=== PATIENT | female | born 1940 | race Caucasian/White ===

== ENCOUNTER → 2022-05-14 | Outpatient (CLI) | payer MEDICARE ==
[2022-05-14 14:30] LABS: HGB 11.6 g/dL (12.0-15.0); MCH 29.4 pg (27.0-32.0); MCHC 31.4 g/dL (32.0-37.0); MCV 93.9 fL (80.0-97.0); Mean Platelet Volume 10.7 fL (9.5-12.2); NRBC Per 100 WBC 0 /100 WBCS (0.0-0.0); Platelet Count 305 X 10*3/uL (140-440); RBC 3.94 X 10*6/uL (4.10-5.20); RDW 12.8 % (11.5-14.5); WBC 8.32 X 10*3/uL (4.50-10.00)
[2022-05-14 14:49] LABS: ALT 10 U/L (8-44); AST 16 U/L (13-35); African American GFR (CKD) 53.2 (60.0-200.0); BUN/Creat Ratio 15.95 Ratio (12.00-20.00); Blood Urea Nitrogen 17.7 mg/dL (9.0-27.0); Calcium 9.6 mg/dL (8.7-10.3); Carbon Dioxide 23.6 mmol/L (20.0-27.5); Chloride 103 mmol/L (96-109); Chol/HDL Ratio 5.67 Ratio; Glucose 98 mg/dL (70-110); LDL Cholesterol,Calculated 180.3 mg/dL (0.0-131.0); Non-African American GFR(CKD) 45.9 (60.0-200.0); Potassium 4.6 mmol/L (3.5-5.5); Sodium 139 mmol/L (135-145); VLDL Calculation 14.12 mg/dL (5.00-40.00)
== END | disposition home or self-care (01) ==
LOC: LABWHC1 10:23
PROVIDERS: ATTEND Internal Medicine Cardiovascular Disease
DX: E78.2 Mixed hyperlipidemia (principal)
CPT/HCPCS: 36415; 80048; 80061; 84443; 84450; 84460; 85027

== ENCOUNTER 2022-07-23 16:08 | Emergency (ER) | payer MEDICARE ==
[2022-07-23 16:20] VITALS: PULSE 66; RESP 18; TEMP 98.1
[2022-07-23] MEDS ORDERED: ONDANSETRON 4 MG/2 ML VIAL IVP STA (16:29)
--- NOTE | 2022-07-23 16:34 | ED ---
Dizziness HPI - General Chief Complaint: Dizziness Stated Complaint: dizziness Time Seen by Provider: 07/23/22 16:23 Source: patient, EMS, RN notes reviewed, old records reviewed Mode of arrival: EMS Limitations: no limitations - History of Present Illness Initial Comments: This is a 82-year-old female alert and oriented 4 presents to emergency room wi th dizziness that started around 2:30 today when she woke up from her nap. She states that she sat up in the room was spinning. She became nauseated but no vomiting. She is unable to stand up on her own. She called EMS but her to the hospital. Her symptoms have resolved at this time. She states that in the past that she has congestive heart failure she would just pass out. She is concerned that this may be related to her heart or kidneys. MD Complaint: dizziness -: hour(s) (2) Timing: now resolved Description: "room spinning", nausea History of Same: No History of Trauma: No Improves With: nothing Worsens With: movement Associated Symptoms: other (nausea) - Related Data Home Medications Medication Instructions Recorded Confirmed Furosemide [Lasix] 20 mg PO DAILY 07/23/22 07/23/22 Levothyroxine Sodium [Synthroid] 75 mcg PO DAILY 07/23/22 07/23/22 Losartan [Cozaar] 25 mg PO DAILY 07/23/22 07/23/22 Metoprolol Succinate (ER) [Toprol 50 mg PO DAILY 07/23/22 07/23/22 Xl] Sevelamer Carbonate 800 mg PO W/SUPPER 07/23/22 07/23/22 Spironolactone [Aldactone] 25 mg PO DAILY 07/23/22 07/23/22 lisinopriL [Prinivil] 10 mg PO DAILY 07/23/22 07/23/22 Previous Rx's Medication Instructions Recorded Meclizine [Antivert] 25 mg PO TID PRN #15 tab 07/23/22 Allergies Allergy/AdvReac Type Severity Reaction Status Date / Time morphine Allergy Nausea & Verified 07/23/22 17:22 Vomiting perflutren [From Definity] Allergy Unknown Verified 07/23/22 17:22 Review of Systems ROS Statement: Those systems with pertinent positive or pertinent negative responses have been documented in the HPI. ROS Other: All systems not noted in ROS Statement are negative. Past Medical History Past Medical History: Heart Failure, COPD, Renal Disease History of Any Multi-Drug Resistant Organisms: None Reported Past Surgical History: Pacemaker Smoking Status: Never smoker Past Alcohol Use History: None Reported Past Drug Use History: None Reported General Exam Limitations: no limitations General appearance: alert, in no apparent distress Head exam: Present: atraumatic, normocephalic, normal inspection Eye exam: Present: normal appearance, EOMI. Absent: scleral icterus, conjunctival injection, nystagmus, periorbital swelling, periorbital tenderness ENT exam: Present: normal oropharynx, mucous membranes moist Neck exam: Present: normal inspection, full ROM. Absent: tenderness, meningismus, lymphadenopathy, thyromegaly Respiratory exam: Present: normal lung sounds bilaterally. Absent: respiratory distress, wheezes, rales, rhonchi, stridor, chest wall tenderness, accessory muscle use Cardiovascular Exam: Present: regular rate GI/Abdominal exam: Present: soft. Absent: distended, tenderness, rigid Extremities exam: Present: full ROM, normal capillary refill. Absent: tenderness, pedal edema Neurological exam: Present: alert, oriented X3, CN II-XII intact Expanded Patient oriented to: Present: person, place, time Speech: Present: fluid speech Cranial nerves: EOM's Intact: Normal, Gag Reflex: Normal, Tongue Deviation: Normal Cerebellar function: Finger to Nose: Normal, Heel to Bhagat: Normal, Romberg: Normal Motor strength exam: RUE: 5, LUE: 5, RLE: 5, LLE: 5 Eye Response: (4) open spontaneously Motor Response: (6) obeys commands Verbal Response: (5) oriented Susannah Total: 15 Psychiatric exam: Present: normal affect, normal mood Skin exam: Present: warm, dry, normal color. Absent: cyanosis, diaphoretic, erythema, petechiae, pallor, mottled Course Vital Signs 07/23/22 16:10 Temperature 98.1 F Pulse Rate 66 Respiratory 18 Rate Blood Pressure 126/58 O2 Sat by Pulse 96 Oximetry EKG Findings - [place], Pacemaker, Normal: Pacemaker: atrial pacing w/capture (except when refractory) (Ventricular rate 60 , MO interval 0.268, QRS 0.126, QTC 0.470; electronic atrial pacemaker left axis deviation) Medical Decision Making - Medical Decision Making She presents with an episode of vertigo lasting approximately one hour after she awoke from a nap and sat up. She states that she felt that the room was spinning and was unable to ambulate. Patient states that the symptoms resolved prior to arrival to arrival at the hospital. She has no headaches, no fevers no vomiting no chest pain or difficulty breathing. He does state that she feels fatigued. She has no symptoms of vertigo at this time. She has no focal neurological deficits. No headaches. EKG shows no ST elevation or acute abnormality. Troponin negative at 0.012. Hemoglobin and hematocrit are stable no evidence of leukocytosis. Electrolytes are unremarkable. Urinalysis is negative for infection. Patient's abdomen is soft and nontender. This is likely peripheral vertigo. She states she has a history of vertigo and was given Antivert at that time with relief. Patient will be prescribed Antivert and directed to follow up with her primary care doctor this week. Return to emergency room with any new or concerning symptoms. Do not drive if having dizziness. Patient is agreeable to this plan of care. Vital signs are stable. Case discussed with Dr. Pittman. - Lab Data Result diagrams: 07/23/22 16:45 07/23/22 16:45 Lab Results 07/23/22 07/23/22 07/23/22 Range/Units 16:45 16:45 16:45 WBC 8.0 (3.8-10.6) k/uL RBC 3.71 L (3.80-5.40) m/uL Hgb 11.1 L (11.4-16.0) gm/dL Hct 34.6 (34.0-46.0) % MCV 93.3 (80.0-100.0) fL MCH 30.0 (25.0-35.0) pg MCHC 32.1 (31.0-37.0) g/dL RDW 12.7 (11.5-15.5) % Plt Count 210 (150-450) k/uL MPV 7.9 Neutrophils % 66 % Lymphocytes % 21 % Monocytes % 5 % Eosinophils % 2 % Basophils % 2 % Neutrophils # 5.3 (1.3-7.7) k/uL Lymphocytes # 1.7 (1.0-4.8) k/uL Monocytes # 0.4 (0-1.0) k/uL Eosinophils # 0.2 (0-0.7) k/uL Basophils # 0.2 (0-0.2) k/uL PT 10.6 (9.0-12.0) sec INR 1.0 (<1.2) Sodium (137-145) mmol/L Potassium (3.5-5.1) mmol/L Chloride (98-107) mmol/L Carbon Dioxide (22-30) mmol/L Anion Gap mmol/L BUN (7-17) mg/dL Creatinine (0.52-1.04) mg/dL Est GFR (CKD-EPI)AfAm (>60 ml/min/1.73 sqM) Est GFR (CKD-EPI)NonAf (>60 ml/min/1.73 sqM) Glucose (74-99) mg/dL Calcium (8.4-10.2) mg/dL Total Bilirubin (0.2-1.3) mg/dL AST (14-36) U/L ALT (4-34) U/L Alkaline Phosphatase (38-126) U/L Troponin I (0.000-0.034) ng/mL Total Protein (6.3-8.2) g/dL Albumin (3.5-5.0) g/dL Urine Color Colorless Urine Appearance Clear (Clear) Urine pH 5.5 (5.0-8.0) Ur Specific [place] 1.003 (1.001-1.035) Urine Protein Negative (Negative) Urine Glucose (UA) Negative (Negative) Urine Ketones Negative (Negative) Urine Blood Negative (Negative) Urine Nitrite Negative (Negative) Urine Bilirubin Negative (Negative) Urine Urobilinogen <2.0 (<2.0) mg/dL Ur Leukocyte Esterase Moderate H (Negative) Urine RBC <1 (0-5) /hpf Urine WBC 4 (0-5) /hpf 07/23/22 07/23/22 Range/Units 16:45 16:45 WBC (3.8-10.6) k/uL RBC (3.80-5.40) m/uL Hgb (11.4-16.0) gm/dL Hct (34.0-46.0) % MCV (80.0-100.0) fL MCH (25.0-35.0) pg MCHC (31.0-37.0) g/dL RDW (11.5-15.5) % Plt Count (150-450) k/uL MPV Neutrophils % % Lymphocytes % % Monocytes % % Eosinophils % % Basophils % % Neutrophils # (1.3-7.7) k/uL Lymphocytes # (1.0-4.8) k/uL Monocytes # (0-1.0) k/uL Eosinophils # (0-0.7) k/uL Basophils # (0-0.2) k/uL PT (9.0-12.0) sec INR (<1.2) Sodium 139 (137-145) mmol/L Potassium 3.7 (3.5-5.1) mmol/L Chloride 106 (98-107) mmol/L Carbon Dioxide 22 (22-30) mmol/L Anion Gap 11 mmol/L BUN 22 H (7-17) mg/dL Creatinine 0.90 (0.52-1.04) mg/dL Est GFR (CKD-EPI)AfAm 69 (>60 ml/min/1.73 sqM) Est GFR (CKD-EPI)NonAf 60 (>60 ml/min/1.73 sqM) Glucose 96 (74-99) mg/dL Calcium 8.9 (8.4-10.2) mg/dL Total Bilirubin 0.3 (0.2-1.3) mg/dL AST 20 (14-36) U/L ALT 12 (4-34) U/L Alkaline Phosphatase 86 (38-126) U/L Troponin I <0.012 (0.000-0.034) ng/mL Total Protein 6.4 (6.3-8.2) g/dL Albumin 3.8 (3.5-5.0) g/dL Urine Color Urine Appearance (Clear) Urine pH (5.0-8.0) Ur Specific [place] (1.001-1.035) Urine Protein (Negative) Urine Glucose (UA) (Negative) Urine Ketones (Negative) Urine Blood (Negative) Urine Nitrite (Negative) Urine Bilirubin (Negative) Urine Urobilinogen (<2.0) mg/dL Ur Leukocyte Esterase (Negative) Urine RBC (0-5) /hpf Urine WBC (0-5) /hpf Disposition Clinical Impression: Vertigo Disposition: HOME SELF-CARE Condition: Good Instructions (If sedation given, give patient instructions): Vertigo (ED), Dizziness (ED) Additional Instructions: Take Antivert as prescribed for any dizziness. Follow-up with the primary care doctor this week. Return to the emergency room with any new or concerning symptoms Prescriptions: Meclizine [Antivert] 25 mg PO TID PRN #15 tab PRN Reason: Vertigo Is patient prescribed a controlled substance at d/c from ED?: No Referrals: Buddy Nguyen MD [Primary Care Provider] - 1-2 days Time of Disposition: 18:58
[2022-07-23 17:02] LABS: Basophils # (A) 0.2 k/uL (0-0.2); Basophils % (A) 2 %; Eosinophils # (A) 0.2 k/uL (0-0.7); Eosinophils % (A) 2 %; HCT 34.6 % (34.0-46.0); HGB 11.1 gm/dL (11.4-16.0); Lymphocytes # (A) 1.7 k/uL (1.0-4.8); Lymphocytes % (A) 21 %; MCHC 32.1 g/dL (31.0-37.0); MCV 93.3 fL (80.0-100.0); Mean Platelet Volume 7.9; Monocytes # (A) 0.4 k/uL (0-1.0); Monocytes % (A) 5 %; Neutrophils # (A) 5.3 k/uL (1.3-7.7); Neutrophils % (A) 66 %; Platelet Count 210 k/uL (150-450); RBC 3.71 m/uL (3.80-5.40); RDW 12.7 % (11.5-15.5)
[2022-07-23 17:09] LABS: Prothrombin Time 10.6 sec (9.0-12.0)
[2022-07-23 17:15] LABS: Albumin 3.8 g/dL (3.5-5.0); Calcium 8.9 mg/dL (8.4-10.2); Potassium 3.7 mmol/L (3.5-5.1); Total Bilirubin 0.3 mg/dL (0.2-1.3); Total Protein 6.4 g/dL (6.3-8.2)
[2022-07-23 18:12] LABS: Appearance,Urine Clear (Clear); Bilirubin,Urine Negative (Negative); Blood,Urine Negative (Negative); Color,Urine Colorless; Glucose,Urine (UA) Negative (Negative); Ketones,Urine Negative (Negative); Leukocyte Esterase,Urine Moderate (Negative); Nitrite,Urine Negative (Negative); PH, Urine 5.5 (5.0-8.0); Protein,Urine Negative (Negative); RBC,Urine <1 /hpf (0-5); Specific Gravity,Urine 1.003 (1.001-1.035); Urobilinogen,Urine <2.0 mg/dL (<2.0); WBC,Urine 4 /hpf (0-5)
[2022-07-23 19:50] VITALS: BP 130/93
== END 2022-07-23 20:03 | disposition home or self-care (01) ==
LOC: EC 16:08
DX: R42 Dizziness and giddiness (principal); J44.9 Chronic obstructive pulmonary disease, unspecified; Z88.5 Allergy status to narcotic agent; Z88.8 Allergy status to other drugs, medicaments and biological substances
CPT/HCPCS: 36415; 93005; 80053; 84484; 85025; 85610; 81001; 99284; 96374; J2405

== ENCOUNTER → 2022-09-13 | Outpatient (CLI) | payer MEDICARE ==
[2022-09-14 00:21] LABS: African American GFR (CKD) 46.5 (60.0-200.0); Anion Gap 14.2 mmol/L (10.00-18.00); BUN/Creat Ratio 17.58 Ratio (12.00-20.00); Blood Urea Nitrogen 21.8 mg/dL (9.0-27.0); Calcium 9.6 mg/dL (8.7-10.3); Carbon Dioxide 23.6 mmol/L (20.0-27.5); Non-African American GFR(CKD) 40.1 (60.0-200.0); Potassium 4.6 mmol/L (3.5-5.5)
== END | disposition home or self-care (01) ==
LOC: LABWHC1 15:00
PROVIDERS: ATTEND Internal Medicine
DX: N18.32 Chronic kidney disease, stage 3b (principal)
CPT/HCPCS: 36415; 80048

== ENCOUNTER → 2022-09-18 | Outpatient (CLI) | payer MEDICARE ==
--- NOTE | 2022-09-18 13:58 | XR ---
EXAMINATION TYPE: XR lumbar spine 2 or 3V DATE OF EXAM: 09/18/2022 CLINICAL HISTORY: Low back pain TECHNIQUE: Three views of the lumbar spine are submitted. COMPARISON: None. FINDINGS: There are 5 lumbar type vertebral bodies identified. No acute fracture or dislocation. Levoscoliotic curvature of the lumbar spine. Diffuse bone mineralization. Grade 1 anterolisthesis of L4 on L5. Mult ilevel degenerative disc disease with disc space narrowing, endplate sclerosis, and anterior osteophy tosis. Multilevel facet arthropathy. Vertebral body heights are within normal limits. The overlying s oft tissue appears unremarkable. IMPRESSION: 1. No acute fracture or dislocation is seen in the lumbar spine. 2. Grade 1 anterolisthesis L4 on L5 with levoscoliotic curvature. 3. Mild lumbar degenerative disc disease.
== END | disposition home or self-care (01) ==
LOC: RADXRMAIN 13:19
PROVIDERS: ATTEND Family Medicine
DX: M43.16 Spondylolisthesis, lumbar region (principal); M51.36 Other intervertebral disc degeneration, lumbar region
CPT/HCPCS: 72100

== ENCOUNTER → 2022-09-18 | Outpatient (CLI) | payer MEDICARE ==
[2022-09-18 18:24] LABS: HCT 41.3 % (37.2-46.3); HGB 13.6 g/dL (12.0-15.0); MCH 30.2 pg (27.0-32.0); MCHC 32.9 g/dL (32.0-37.0); MCV 91.6 fL (80.0-97.0); NRBC Per 100 WBC 0 /100 WBCS (0.0-0.0); Platelet Count 264 X 10*3/uL (140-440); RBC 4.51 X 10*6/uL (4.10-5.20); RDW 12.7 % (11.5-14.5)
[2022-09-18 19:32] LABS: Albumin 4.8 g/dL (3.8-4.9); Albumin/Globulin Ratio 1.76 (1.60-3.17); Anion Gap 14.2 mmol/L (10.00-18.00); BUN/Creat Ratio 22.41 Ratio (12.00-20.00); Blood Urea Nitrogen 24.2 mg/dL (9.0-27.0); Calcium 9.7 mg/dL (8.7-10.3); Carbon Dioxide 22.1 mmol/L (20.0-27.5); Globulin 2.7 g/dL (1.6-3.3); Magnesium 2.3 mg/dL (1.5-2.4); Non-African American GFR(CKD) 47.4 (60.0-200.0); Phosphorus 3.7 mg/dL (2.4-5.1); Potassium 4.7 mmol/L (3.5-5.5); Total Bilirubin 0.5 mg/dL (0.30-1.20); Total Protein 7.6 g/dL (6.2-8.2)
== END | disposition home or self-care (01) ==
LOC: LABWHC1 12:43
PROVIDERS: ATTEND Nurse Practitioner Acute Care
DX: N18.32 Chronic kidney disease, stage 3b (principal)
CPT/HCPCS: 36415; 80053; 83735; 84100; 85027

== ENCOUNTER 2022-09-24 18:01 | Inpatient (IN) | payer MEDICARE ==
[2022-09-24] MEDS ORDERED: ONDANSETRON 4 MG/2 ML VIAL IVP STA (19:16)
[2022-09-24] MEDS ORDERED: SODIUM CHLORIDE 0.9% 1,000 ML IV STA (19:16)
[2022-09-24] MEDS ORDERED: HYDROmorphone 1 MG/ML 1 ML SYRINGE IVP STA (19:16)
--- NOTE | 2022-09-24 19:25 | ED ---
General Adult HPI - General Chief complaint: Back Pain/Injury Stated complaint: Back Pain Time Seen by Provider: 09/24/22 18:10 Source: patient, family, EMS, RN notes reviewed Mode of arrival: EMS Limitations: no limitations - History of Present Illness Initial comments: Patient is a pleasant 82-year-old female presenting to the emergency department with concerns with sciatic pain. Onset of symptoms was 2-3 weeks ago. As comfort was somewhat sudden in the left posterior buttocks region. Discomfort does radiate somewhat. No new incontinence or retention of bowel or bladder. No weakness or loss of sensation. Patient has extreme pain with movement and attempted ambulation. Patient is not eating or drinking much patient is not getting out of bed. Family has concerns that patient is not taking care of herself. I also did speak with patient's family member who is a physician in [facility]. He is concerned with patient being at home and feels her outpatient management is not working. They have been trying to get injections, MRI without success. They have also tried Tylenol with codeine as well as Vicodin without success. - Related Data Home Medications Medication Instructions Recorded Confirmed Furosemide [Lasix] 20 mg PO DAILY 07/23/22 07/23/22 Levothyroxine Sodium [Synthroid] 75 mcg PO DAILY 07/23/22 07/23/22 Losartan [Cozaar] 25 mg PO DAILY 07/23/22 07/23/22 Metoprolol Succinate (ER) [Toprol 50 mg PO DAILY 07/23/22 07/23/22 Xl] Sevelamer Carbonate 800 mg PO W/SUPPER 07/23/22 07/23/22 Spironolactone [Aldactone] 25 mg PO DAILY 07/23/22 07/23/22 lisinopriL [Prinivil] 10 mg PO DAILY 07/23/22 07/23/22 Previous Rx's Medication Instructions Recorded Meclizine [Antivert] 25 mg PO TID PRN #15 tab 07/23/22 Allergies Allergy/AdvReac Type Severity Reaction Status Date / Time morphine Allergy Nausea & Verified 09/24/22 18:08 Vomiting perflutren [From Definity] Allergy Unknown Verified 09/24/22 18:08 Review of Systems ROS Statement: Those systems with pertinent positive or pertinent negative responses have been documented in the HPI. ROS Other: All systems not noted in ROS Statement are negative. Constitutional: Denies: fever Eyes: Denies: eye pain ENT: Denies: ear pain Respiratory: Denies: cough Cardiovascular: Denies: chest pain Endocrine: Denies: fatigue Gastrointestinal: Denies: abdominal pain Genitourinary: Denies: dysuria Musculoskeletal: Reports: as per HPI, back pain Skin: Denies: rash Neurological: Denies: weakness Past Medical History Past Medical History: Heart Failure, COPD, Renal Disease History of Any Multi-Drug Resistant Organisms: None Reported Past Surgical History: No Surgical Hx Reported, Pacemaker Past Psychological History: No Psychological Hx Reported Smoking Status: Never smoker Past Alcohol Use History: None Reported Past Drug Use History: None Reported General Exam Limitations: no limitations General appearance: alert, in no apparent distress Head exam: Present: atraumatic Eye exam: Present: normal appearance Neck exam: Present: normal inspection Respiratory exam: Present: normal lung sounds bilaterally Cardiovascular Exam: Present: regular rate, normal rhythm Expanded Peripheral pulses: 2+: Posterior Tibialis (R), Posterior Tibialis (L), Dorsalis Pedis (R), Dorsalis Pedis (L) GI/Abdominal exam: Present: soft. Absent: tenderness Extremities exam: Present: normal inspection, full ROM Back exam: Present: tenderness (Left sciatic region) Neurological exam: Present: alert. Absent: motor sensory deficit Psychiatric exam: Present: normal affect, normal mood Skin exam: Present: normal color Course Vital Signs 09/24/22 18:02 Temperature 98 F Pulse Rate 64 Respiratory 18 Rate Blood Pressure 142/97 O2 Sat by Pulse 97 Oximetry Medical Decision Making - Medical Decision Making Case was discussed with Dr. Mccormick, who will admit covering for Dr. Nguyen. Patient will likely need placement. Patient may also benefit from further evaluation and pain control. Disposition Clinical Impression: Back pain, Weakness Disposition: ADMITTED IP TO THIS HOSP Is patient prescribed a controlled substance at d/c from ED?: No Referrals: Buddy Nguyen MD [Primary Care Provider] - 1-2 days Time of Disposition: 19:39
[2022-09-24] MEDS ORDERED: NALOXONE 0.4 MG/ML 1 ML VIAL IV PRN (19:40)
[2022-09-24] MEDS ORDERED: ONDANSETRON 4 MG/2 ML VIAL IVP PRN (19:40)
[2022-09-24 19:57] LABS: Basophils # (A) 0.1 k/uL (0-0.2); Basophils % (A) 1 %; Eosinophils # (A) 0.1 k/uL (0-0.7); Eosinophils % (A) 1 %; HCT 39.7 % (34.0-46.0); HGB 13.7 gm/dL (11.4-16.0); Lymphocytes # (A) 2.4 k/uL (1.0-4.8); Lymphocytes % (A) 23 %; MCH 31.3 pg (25.0-35.0); MCHC 34.6 g/dL (31.0-37.0); MCV 90.5 fL (80.0-100.0); Mean Platelet Volume 8.4; Monocytes # (A) 0.4 k/uL (0-1.0); Monocytes % (A) 4 %; Neutrophils # (A) 6.9 k/uL (1.3-7.7); Neutrophils % (A) 68 %; Platelet Count 220 k/uL (150-450); RBC 4.38 m/uL (3.80-5.40); RDW 12.7 % (11.5-15.5); WBC 10.2 k/uL (3.8-10.6)
[2022-09-24 20:07] LABS: Albumin 4.4 g/dL (3.5-5.0); Calcium 9.6 mg/dL (8.4-10.2); Potassium 3.9 mmol/L (3.5-5.1); Total Bilirubin 0.4 mg/dL (0.2-1.3)
[2022-09-24] MEDS ORDERED: FAMOTIDINE 20 MG TAB PO SCH (21:00)
[2022-09-24] MEDS: FAMOTIDINE 20 MG TAB PO SCH (21:34)
[2022-09-24] MEDS: SODIUM CHLORIDE 0.9% 1,000 ML IV SCH (21:34)
[2022-09-24 22:11] LABS: Appearance,Urine Clear (Clear); Bilirubin,Urine Negative (Negative); Blood,Urine Negative (Negative); Color,Urine Light Yellow; Glucose,Urine (UA) Negative (Negative); Hyaline Casts,Urine 1 /lpf (0-2); Ketones,Urine Negative (Negative); Leukocyte Esterase,Urine Small (Negative); Nitrite,Urine Negative (Negative); PH, Urine 5.5 (5.0-8.0); Protein,Urine Negative (Negative); RBC,Urine 1 /hpf (0-5); Specific Gravity,Urine 1.012 (1.001-1.035); Urobilinogen,Urine <2.0 mg/dL (<2.0); WBC,Urine 2 /hpf (0-5)
[2022-09-25] MEDS: HYDROmorphone 1 MG/ML 1 ML SYRINGE IVP PRN ×2 (00:23→13:11)
[2022-09-25] MEDS ORDERED: MECLIZINE 25 MG TAB PO PRN (09:59)
[2022-09-25] MEDS: SODIUM CHLORIDE 0.9% 1,000 ML IV SCH (10:54)
[2022-09-25] MEDS: LEVOTHYROXINE 75 MCG TAB PO SCH (10:58)
[2022-09-25] MEDS: FUROSEMIDE 20 MG TAB PO SCH (10:59)
[2022-09-25] MEDS: METOPROLOL SUCCINATE (ER) 50 MG TAB.ER.24H PO SCH (10:59)
[2022-09-25] MEDS: SPIRONOLACTONE 25 MG TAB PO SCH (10:59)
--- NOTE | 2022-09-25 12:34 | P.HPIM ---
History of Present Illness H&P Date: 09/25/22 This is a pleasant 82 of female patient of Dr. 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 Patient presents to the hospital with concern for sciatic pain that began about 2 to 3 weeks ago. Patient reports pain in the sudden posterior buttock region does radiate down to the her left ankle describes as burning. She denies urinary retention and incontinence also denies bowel incontinence. There is no weakness or loss of sensation.Patient lives at home by herself. She reports in January of this year she was packing up her house and over the last few months has been unpacking boxes etc. She has also been doing some yard work outside. She reports having a sudden onset of left lower back pain with radiation making it difficult to move. She has an appointment with pain management next saturday and also [facility] was set to start seeing her on . Patient states she couldn't wait to see pain management so she came by ambulance to the emergency center. On admission hematology panel is unremarkable, white count 10.2, on stable 13.7. Patient has some mild dehydration with a BUN of 29, creatinine 0.99, glucose of 111, all other electrolytes are within normal limits. Liver enzymes are normal. Urinalysis is negative for infection there is small leukocyte esterase. Patient is admitted for back pain and weakness, PT OT will be consult and also orthopedics and pain management are placed on consultation for further evaluation and work up regarding lower back pain. She did have a lumbar spine x-ray completed on September 18 showing no acute fracture or dislocation there is a grade 1 anterior listhesis L4 on L5 with levoscoliotic curvature there is mild lumbar degenerative disc disease. Patient is being hydrated with normal saline. Upon assessment patient was sitting up in chair she had just worked with physical therapy. She reports pain at a 2/10 to her left ankle more described as tingling and burning sensation. Reports left buttock pain about a 1/10 which is significantly improved. She is in good spirits. REVIEW OF SYSTEMS: CONSTITUTIONAL: No fever, no malaise, no fatigue. HEENT: No recent visual problems or hearing problems. Denied any sore throat. CARDIOVASCULAR: No chest pain, orthopnea, PND, no palpitations, no syncope. PULMONARY: No shortness of breath, no cough, no hemoptysis. GASTROINTESTINAL: No diarrhea, no nausea, no vomiting, no abdominal pain. NEUROLOGICAL: No headaches, no weakness, no numbness. HEMATOLOGICAL: Denies any bleeding or petechiae. GENITOURINARY: Denies any burning micturition, frequency, or urgency. MUSCULOSKELETAL/RHEUMATOLOGICAL: Denies any joint pain, swelling, or any muscle pain. ENDOCRINE: Denies any polyuria or polydipsia. The rest of the 14-point review of systems is negative PHYSICAL EXAMINATION: GENERAL: The patient is alert and oriented x3, not in any acute distress. Well developed, well nourished. HEENT: Pupils are round and equally reacting to light. EOMI. No scleral icterus. No conjunctival pallor. Normocephalic, atraumatic. No pharyngeal erythema. No thyromegaly. CARDIOVASCULAR: S1 and S2 present. No murmurs, rubs, or gallops. PULMONARY: Chest is clear to auscultation, no wheezing or crackles. ABDOMEN: Soft, nontender, nondistended, normoactive bowel sounds. No palpable organomegaly. MUSCULOSKELETAL: No joint swelling or deformity. EXTREMITIES: No cyanosis, clubbing, or pedal edema. NEUROLOGICAL: Gross neurological examination did not reveal any focal deficits. SKIN: No rashes. Assessment and Plan Assessment Acute left lower back pain with radiation is most likely a lumbar radiculopathy orthopedics is on consultation as well as pain management services Mild acute dehydration with BUN of 29, creatinine 0.99 and patient is receiving hydration with IV normal saline at 75 mls per hour which will need to be monitored this patient is a history of heart failure History of heart failure follows at [facility] for cardiology Status post permanent pacemaker in 2013 History of right hip replacement GI prophylaxis DVT prophylaxis Plan Continue with pain management Consultation in place with pain management services Consultation in place with orthopedics, pending Physical therapy/occupational therapy on consultation Resume appropriate home medications Further recommendations pending The impression and plan of care has been dictated by Cyn Echevarria Nurse Practitioner as directed. Dr. Benoit MD I have performed a history and physical examination and medical decision making of this patient, discussed the same with the dictator, and agree with the dictators assessment and plan as written, documented as a scribe. Based on total visit time, I have performed more than 50% of this visit. Past Medical History Past Medical History: Heart Failure, COPD, Renal Disease History of Any Multi-Drug Resistant Organisms: None Reported Past Surgical History: No Surgical Hx Reported, Pacemaker Type of Cardiac Device: Permanent Pacemaker Device Placement Date:: 2013 Past Psychological History: No Psychological Hx Reported Smoking Status: Never smoker Past Alcohol Use History: None Reported Past Drug Use History: None Reported Medications and Allergies Home Medications Medication Instructions Recorded Confirmed Type Furosemide [Lasix] 20 mg PO DAILY 07/23/22 09/24/22 History Levothyroxine Sodium [Synthroid] 75 mcg PO DAILY 07/23/22 09/24/22 History Meclizine [Antivert] 25 mg PO TID PRN #15 tab 07/23/22 09/24/22 Rx Metoprolol Succinate (ER) [Toprol 50 mg PO DAILY 07/23/22 09/24/22 History Xl] Spironolactone [Aldactone] 25 mg PO DAILY 07/23/22 09/24/22 History Allergies Allergy/AdvReac Type Severity Reaction Status Date / Time morphine Allergy Nausea & Verified 09/24/22 20:16 Vomiting perflutren [From Definity] Allergy Unknown Verified 09/24/22 20:16 Physical Exam Vitals: Vital Signs Temp Pulse Pulse Resp BP BP Pulse Ox 09/25/22 04:20 98.0 F 63 18 113/67 98 09/24/22 21:17 98.0 F 60 18 145/74 99 09/24/22 20:59 64 15 120/58 96 09/24/22 18:02 98 F 64 18 142/97 97 Intake and Output 09/24/22 09/25/22 09/25/22 22:59 06:59 14:59 Intake Total 500 Output Total 400 Balance -400 500 Intake: Oral 500 Output: Urine 400 Other: # Voids 1 Weight 47.174 kg Results CBC & Chem 7: 09/24/22 19:54 09/24/22 19:54 Labs: Abnormal Lab Results - Last 24 Hours (Table) 09/24/22 09/24/22 Range/Units 19:54 21:40 BUN 29 H (7-17) mg/dL Glucose 111 H (74-99) mg/dL Ur Leukocyte Esterase Small H (Negative) Thrombosis Risk Factor Assmnt - Choose All That Apply Any of the Below Risk Factors Present?: Yes Each Factor Represents 1 point: Abnormal pulmonary function (COPD) Other Risk Factors: Yes Each Risk Factor Represents 3 Points: Age 75 years or older Other congenital or acquired thrombophilia - If yes, enter type in comment: No Thrombosis Risk Factor Assessment Total Risk Factor Score: 4 Thrombosis Risk Factor Assessment Level: Moderate Risk Assessment and Plan Time with Patient: Less than 30
--- NOTE | 2022-09-25 16:58 | P.CNOR ---
History of Present Illness - [facility] Consult date: 09/25/22 History of present illness: This patient is an 82- year old female with a past medical history of heart failure, pacemaker that presented to [facility] emergency department on 09/24/22 due to sciatica. Patient states she began experiencing left posterior buttock pain with radiation to the left ankle about 2 weeks ago. Her primary care doctor evaluated the patient and ordered x-rays on 09/18/22. Patient continued to experience pain and she was having issues taking care of herself at home due to the pain, therefore ambulance was called. Patient was admitted under the care of internal medicine with a consult placed to orthopedic spine surgery and pain management. Patient is examined bedside this morning. She continues to experience pain mostly localized to the posterior left buttock. She denies bowel or bladder incontinence. She is currently comfortable but the pain increases with activity. She denies falls or trauma. Patient denies lower extremity weakness. Patient denies additional complaints at this time. Vital signs stable. Past Medical History Past Medical History: Heart Failure, COPD, Renal Disease History of Any Multi-Drug Resistant Organisms: None Reported Past Surgical History: No Surgical Hx Reported, Pacemaker Type of Cardiac Device: Permanent Pacemaker Device Placement Date:: 2013 Past Psychological History: No Psychological Hx Reported Smoking Status: Never smoker Past Alcohol Use History: None Reported Past Drug Use History: None Reported Medications and Allergies Home Medications Medication Instructions Recorded Confirmed Type Furosemide [Lasix] 20 mg PO DAILY 07/23/22 09/24/22 History Levothyroxine Sodium [Synthroid] 75 mcg PO DAILY 07/23/22 09/24/22 History Meclizine [Antivert] 25 mg PO TID PRN #15 tab 07/23/22 09/24/22 Rx Metoprolol Succinate (ER) [Toprol 50 mg PO DAILY 07/23/22 09/24/22 History Xl] Spironolactone [Aldactone] 25 mg PO DAILY 07/23/22 09/24/22 History Allergies Allergy/AdvReac Type Severity Reaction Status Date / Time morphine Allergy Nausea & Verified 09/24/22 20:16 Vomiting perflutren [From Definity] Allergy Unknown Verified 09/24/22 20:16 hydromorphone [From Dilaudid] AdvReac Nausea & Verified 09/25/22 15:18 Vomiting Physical Examination On examination, patient is sitting up in bed in no apparent distress. She is alert and oriented 3. Her head appears normocephalic and atraumatic. Her breathing appears unlabored. On inspection of her bilateral upper extremities, no obvious deformities or signs of trauma. On inspection of her bilateral lower extremities, no obvious deformities and or signs of trauma. On inspection of the low back, no ecchymosis, abrasions. No palpable step-offs. No open wounds. There is no pain with passive range of motion of the left hip. Motor and sensory function is intact of the left lower extremity. She has good strength and ROM of the left ankle and toes. Left lower extremity warm and well perfused. Calf nontender. Results Lumbar spine x-rays from date 09/18/[address] Marks. - Labs Labs: Abnormal Lab Results - Last 24 Hours (Table) 09/24/22 09/24/22 Range/Units 19:54 21:40 BUN 29 H (7-17) mg/dL Glucose 111 H (74-99) mg/dL Ur Leukocyte Esterase Small H (Negative) H & H 09/24/22 Range/Units 19:54 Hgb 13.7 (11.4-16.0) gm/dL Hct 39.7 (34.0-46.0) % Result Diagrams: 09/24/22 19:54 09/24/22 19:54 Assessment and Plan Assessment: Low back pain Lumbar radiculopathy Plan: - Patient is discussed with Dr. Marks. No operative intervention recommended at this time. Recommend evaluation by pain management. - Physical therapy as tolerated. - We will follow patient as she remains inpatient and make recommendations as needed.
[2022-09-25] MEDS: FAMOTIDINE 20 MG TAB PO SCH (21:16)
[2022-09-25] MEDS: HEPARIN SODIUM,PORCINE/PF 5,000 UNIT/0.5 ML SYRINGE SQ SCH (21:16)
[2022-09-25] MEDS: traMADol 50 MG TAB PO PRN (21:23)
[2022-09-26] MEDS: ACETAMINOPHEN TAB 325 MG TAB PO PRN (00:44)
[2022-09-26] MEDS: traMADol 50 MG TAB PO PRN ×3 (06:02→21:37)
[2022-09-26] MEDS: LEVOTHYROXINE 75 MCG TAB PO SCH (06:02)
[2022-09-26] MEDS: SPIRONOLACTONE 25 MG TAB PO SCH (09:02)
[2022-09-26] MEDS: FUROSEMIDE 20 MG TAB PO SCH (09:04)
[2022-09-26] MEDS: METOPROLOL SUCCINATE (ER) 50 MG TAB.ER.24H PO SCH (09:04)
[2022-09-26] MEDS: HEPARIN SODIUM,PORCINE/PF 5,000 UNIT/0.5 ML SYRINGE SQ SCH ×2 (09:25→14:55)
--- NOTE | 2022-09-26 10:38 | CT ---
EXAMINATION TYPE: CT lumbar spine wo con DATE OF EXAM: 09/26/2022 COMPARISON: HISTORY: Low back pain with radiating pain down left leg CT DLP: 329.[address] of the lumbar spine was performed. Bone and soft tissue window settings are submitted as well as coronal and sagittal reconstructions. L1-L2: Normal disc space height. No disc herniation protrusion or central stenosis. No facet joint arthropathy. No evidence for foraminal encroachment. L2-L3: Severe degenerative disc space narrowing with vacuum disc and ventral and dorsal spondylosis. Mild posterior disc bulge with effacement of the ventral thecal sac. Bilateral neural foraminal encro achment right greater than left with facet joint arthropathy. L3-L4: Mild degenerative disc space narrowing. Mild posterior disc bulge. Effacement ventral thecal s ac without evidence for herniation of protrusion. No central stenosis. No foraminal encroachment. L4-L5: Severe disc desiccation with vacuum disks noted. Grade 1 anterolisthesis of L4 and L5 measurin g 5.5 mm. No evidence of spondylolysis. Facet joint arthropathy seen. Distortion of the thecal sac wi th the mild central stenosis. Bilateral foraminal encroachment. L5-S1: Normal disc space height. No disc herniation protrusion or central stenosis. No facet joint arthropathy. No evidence for foraminal encroachment. No paraspinal masses are identified. Lumbar segments are free if fracture. Curvature noted convex to the left. IMPRESSION: 1. Multilevel degenerative disc disease. 2. Grade 1 anterolisthesis L4 and L5. Central stenosis at this level.
--- NOTE | 2022-09-26 14:40 | P.PAINPG ---
Objective - Vital Signs Vital signs: Vital Signs Temp 98.8 F 09/26/22 08:39 Pulse 70 09/26/22 08:39 Resp 14 09/26/22 08:39 BP 128/70 09/26/22 08:39 Pulse Ox 96 09/26/22 08:39 FiO2 Intake & Output 09/25/22 09/26/22 09/26/22 18:59 06:59 18:59 Other: # Voids 1 1 - Labs CBC & Chem 7: 09/24/22 19:54 09/24/22 19:54 PQRS Measure Charge Sheet Comment: HISTORY OF PRESENT ILLNESS: 82 yr old inpatient female as a referral from Dr Marks presents today w severe and chronic LBP secondary to DDD, spondylosis and facet arthropathy without myelopathy for evaluation. Pt states her pain level is currently at 8/10 in intensity, constant, localized in the L lower lumbar spine, achy and throbbing in character w sharp pain radiating down the LLE towards her foot. Pain is provoked w weight bearing activities (standing/ walking/ lifting/ bending). Pain is alleviated slightly w laying supine on her L side, repositioning and rest. She states that Morphine makes her vomit and experience nausea, and that Dilaudid makes her dry heave/ almost vomit. She is currently on Tramadol with moderate pain and will keep me informed of any side effects. PMH: HTN, CHF, COPD, CRF, Hypothyroidism PSH: Pacemaker (2013) SH: Negative x 3 FH: Non contributory All: See list Meds: See list REVIEW OF ORGAN SYSTEMS: CONSTITUTIONAL: No fevers or chills. No recent weight loss. NEUROLOGICAL: + numbness and tingling along the distal extremities. No seizure disorders or headaches. MUSCULOSKELETAL: + pain PSYCHIATRIC: Denies current depression or suicidal thoughts. Physical Examinations : Constitutional : Cooperative , not in acute distress . Neurologic : Cranial nerve II to XII intact. No focal neurological deficits. Psychiatric : alert & oriented x 3. Matching mood & appropriate affect. Judgment & insight intact. Musculoskeletal : Cervical Spine Motor strength in the deltoid and biceps: Normal right side. Normal Left side Motor strength biceps and the wrist extensors: Normal right side . Normal left side Motor strength in the triceps muscle: Normal right side. Normal left side Deep tendon reflexes: Normal at the biceps. Normal at Brachioradialis. Normal at triceps Vertebral body tenderness to deep palpation over Cervical facet loading test: positive bilaterally Spurling test: positive bilaterally Neck distraction test: positive bilaterally Maverick sign: positive bilaterally Lumbar spine Motor strength lower extremities ,thigh and legs 5/5 Right side , 5/5 Left side Deep tendon reflexes : Normal Knee Jerk. Normal Ankle Jerk Vertebral body tenderness over L4, L5 Lumbar facet Loading Test: positive Right / positive Left Range of motion of the lumbar spine Flexion 30 degrees, extension 10 degrees Straight Leg Raise test: Left/ Right positive at degree Keenan test: positive right / positive left. Severe tenderness over the Sacroiliac joint on the Right / Left sides Gaenslen test: positive bilaterally Seated flexion test: positive bilaterally. Sacral spine : Severe tenderness over the Sacroiliac joint: right side / left side Range of motion: Flexion of the lumbar spine <60 degrees Range of motion: Extension of the lumbar spine <20 degrees Gaenslen's Test positive Franco's Test positive Keenan test: positive right side / left side Thigh Thrust Test Sacral Thrust Test Imaging: CT without contrast of the lumbar spine from reviewed. Assessment/ Plan : Lumbar DDD, Lumbar Spondylosis, Lumbar anterolisthesis Recommendation of GABRIEL Mario paramedian L4-L5. May need a series of injections, up to 3 within a 6 mo period, for optimal pain relief. Risks, benefits of procedure discussed and patient verbalized understanding. Admits to aspirin or anti- coagulant use or medical history of diabetes. Protocol for discontinuation/ continuation of medications nga procedure discussed. NPO after midnight and holding anticoagulants orders entered. All questions answered. I have spent greater than 30 minutes on patient care today. Dr Gonzales was available by phone for the evaluation of this patient. The time was used to review the medical records including relevant urine studies and Prescription history (MAPs), review of the available imaging, evaluation and examination of the patient, coordination of care with the medical staff and if applicable referring physicians, as well as creation of the medical record - Pain Location Left Buttock Non-Pharmacological Interventions: Darkened Room, Position/Reposition, Reduce Environmental Stimuli Pharmacological Interventions: PRN Medication Lower Back Non-Pharmacological Interventions: Inactivity, Position/Reposition Pharmacological Interventions: PRN Medication PQRS Narrative: Do You Want the Pneumonia No Vaccine AT THIS TIME? Blood Pressure [Left Arm] 128/70 Blood Pressure [Right Arm 123/65 Supine] Blood Pressure 120/58 Pain Intensity [Lower Back] 8 Pain Intensity [Left Buttock] 0 Pain Intensity 8 Pain Scale Used Numeric (1 - 10) Scale Used Numeric (1 - 10) Home Medications: Ambulatory Orders Furosemide [Lasix] 20 mg PO DAILY 07/23/22 Levothyroxine Sodium [Synthroid] 75 mcg PO DAILY 07/23/22 Meclizine [Antivert] 25 mg PO TID PRN #15 tab 07/23/22 Metoprolol Succinate (ER) [Toprol Xl] 50 mg PO DAILY 07/23/22 Spironolactone [Aldactone] 25 mg PO DAILY 07/23/22 Controlled Substance Measures - Controlled Substance Measures Is patient prescribed a controlled substance at discharge?: No
--- NOTE | 2022-09-26 15:41 | P.PN ---
Subjective Progress Note Date: 09/26/22 This is a pleasant 82 of female patient of Dr. 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 Patient presents to the hospital with concern for sciatic pain that began about 2 to 3 weeks ago. Patient reports pain in the sudden posterior buttock region does radiate down to the her left ankle describes as burning. She denies urinary retention and incontinence also denies bowel incontinence. There is no weakness or loss of sensation.Patient lives at home by herself. She reports in January of this year she was packing up her house and over the last few months has been unpacking boxes etc. She has also been doing some yard work outside. She reports having a sudden onset of left lower back pain with radiation making it difficult to move. She has an appointment with pain management next saturday and also [facility] was set to start seeing her on . Patient states she couldn't wait to see pain management so she came by ambulance to the emergency center. On admission hematology panel is unremarkable, white count 10.2, on s table 13.7. Patient has some mild dehydration with a BUN of 29, creatinine 0.99, glucose of 111, all other electrolytes are within normal limits. Liver enzymes are normal. Urinalysis is negative for infection there is small leukocyte esterase. Patient is admitted for back pain and weakness, PT OT will be consult and also orthopedics and pain management are placed on consultation for further evaluation and work up regarding lower back pain. She did have a lumbar spine x-ray completed on September 18 showing no acute fracture or dislocation there is a grade 1 anterior listhesis L4 on L5 with levoscoliotic curvature there is mild lumbar degenerative disc disease. Patient is being hydrated with normal saline. Upon assessment patient was sitting up in chair she had just worked with physical therapy. She reports pain at a 2/10 to her left ankle more described as tingling and burning sensation. Reports left buttock pain about a 1/10 which is significantly improved. She is in good spirits. 09/26/2022 Patient evaluated today during physical therapy evaluation. She has been recommended for subacute rehab she does live home alone. Patient had lumbar spine CT completed today showing grade 1 anterolisthesis L4 and L5 with central stenosis at this level. Pain management has evaluated patient and recommending patient undergo lumbar epidural steroid injection procedure left paramedian L4 t o L5 tomorrow and subcu heparin being held. Pain control with tylenol and tramadol, currently after PT evaluation patient states pain 8/10. PHYSICAL EXAMINATION: GENERAL: The patient is alert and oriented x3, not in any acute distress. Well developed, well nourished. HEENT: Pupils are round and equally reacting to light. EOMI. No scleral icterus. No conjunctival pallor. Normocephalic, atraumatic. No pharyngeal erythema. No thyromegaly. CARDIOVASCULAR: S1 and S2 present. No murmurs, rubs, or gallops. PULMONARY: Chest is clear to auscultation, no wheezing or crackles. ABDOMEN: Soft, nontender, nondistended, normoactive bowel sounds. No palpable organomegaly. MUSCULOSKELETAL: No joint swelling or deformity. EXTREMITIES: No cyanosis, clubbing, or pedal edema. NEUROLOGICAL: Gross neurological examination did not reveal any focal deficits. SKIN: No rashes. Assessment and Plan Assessment Acute left lower back pain with radiation is most likely a lumbar radiculopathy orthopedics is on consultation as well as pain management services Mild acute dehydration, adequately rehydrated History of heart failure follows at [facility] for cardiology Status post permanent pacemaker in 2013 History of right hip replacement GI prophylaxis DVT prophylaxis Plan Continue with pain management Patient to undergo lumbar epidural steroid injection tomorrow with pain management services. Physical therapy/occupational therapy on consultation Further recommendations pending for discharge planning. The impression and plan of care has been dictated by Cyn Echevarria Nurse Practitioner as directed. Dr. Benoit MD I have performed a history and physical examination and medical decision making of this patient, discussed the same with the dictator, and agree with the dictators assessment and plan as written, documented as a scribe. Based on total visit time, I have performed more than 50% of this visit. Objective - Vital Signs Vital signs: Vital Signs Temp 98.4 F 09/26/22 11:45 Pulse 64 09/26/22 11:45 Resp 14 09/26/22 11:45 BP 144/66 09/26/22 11:45 Pulse Ox 98 09/26/22 11:45 FiO2 Intake & Output 09/25/22 09/26/22 09/26/22 18:59 06:59 18:59 Other: # Voids 1 1 - Labs CBC & Chem 7: 09/24/22 19:54 09/24/22 19:54 Assessment and Plan Time with Patient: Less than 30
--- NOTE | 2022-09-26 16:10 | P.PN ---
Progress Note - Text Progress Note Date: 09/26/22 The patient is seen and examined at bedside. She says she was able get up to the bathroom on her own but is having some soreness at her back and leg with this. She says that overall her pain is in some progress and evening out but she still has difficulty with activities. On exam she has sustained dorsal flexion plantar flexion and EHL bilateral lower extremity. There is no pain with internal extra rotation of her hips. There is no focal neurologic deficit. On exam her computed tomography scan shows significant changes present at L4 5 with a grade 2 spondylolisthesis and near complete disc height loss. There is significant stenosis L4 5 and L3 4 Assessment and plan Acute on chronic low back pain with exacerbation Spondylolisthesis L4 5 with degenerative disc disease and spinal stenosis L3 4 L4 5 Lower extremity radiculopathy The patient has a number of changes at her lumbar spine which correlated with her low back and lower show any symptoms. She has not been through very much conservative treatment and I would recommend her continuing conservative care for now. She could do well physical therapy as well as oral medication and interventional pain management. If consult interventional pain management for her. I think she should try to pursue conservative treatment prior to considering any sort of surgical intervention. I do not plan surgical intervention acutely during this admission. I can follow her up on an outpatient basis and see her back in approximately a few weeks for recheck evaluation to see if she is making progress with her conservative care. She ultimately could be a candidate for surgical intervention if all conservative measures were to fail. We will follow her up on an outpatient basis.
[2022-09-26] MEDS: FAMOTIDINE 20 MG TAB PO SCH (21:39)
[2022-09-27] MEDS: LEVOTHYROXINE 75 MCG TAB PO SCH (05:56)
[2022-09-27] MEDS: traMADol 50 MG TAB PO PRN ×2 (06:00→11:24)
[2022-09-27] MEDS: METOPROLOL SUCCINATE (ER) 50 MG TAB.ER.24H PO SCH (10:15)
[2022-09-27] MEDS: FUROSEMIDE 20 MG TAB PO SCH (10:16)
[2022-09-27] MEDS: SPIRONOLACTONE 25 MG TAB PO SCH (10:17)
[2022-09-27] MEDS: ACETAMINOPHEN TAB 325 MG TAB PO PRN (10:18)
[2022-09-27] MEDS ORDERED: LACTATED RINGERS 1,000 ML IV ONE (14:08)
[2022-09-27 14:11] VITALS: BP 133/67; PULSE 69; RESP 16; TEMP 98.6
[2022-09-27] MEDS ORDERED: methylPREDNISolone ACETATE 40 MG/ML 1 ML VIAL ONE (14:40)
[2022-09-27] MEDS ORDERED: IOPAMIDOL M200 10 ML VIAL ONE (14:40)
[2022-09-27] MEDS ORDERED: MIDAZOLAM 2 MG/2 ML VIAL ONE (14:40)
--- NOTE | 2022-09-27 14:51 | P.PCN ---
Date of Procedure: 09/27/22 Procedure(s) Performed: PREOPERATIVE DIAGNOSIS: 1- Lumbar Degenerative Disc Diseases 2-Lumbar spondylosis with Facet arthropathy without myelopathy. 3-lumbar radiculopathy POSTOPERATIVE DIAGNOSIS: Same as preop diagnosis. PROCEDURE 1. Lumbar epidural steroid injection under fluoroscopic guidance at the L4-5 level. (Fluoroscopy imaging was available in radiology department) 2. Lumbar epidurogram. ANESTHESIA: moderate sedation with intravenous Versed 1 mg . Sedation start time : 1444 Sedation end time : 1449 EBL: Minimal PROCEDURE INDICATION: The patient with low back pain and radiculitis symptoms unresponsive to conservative treatment. Fluoroscopy was used to optimize visualization of the needle placement and to maximize safety. PROCEDURE DESCRIPTION / TECHNIQUE: The patient was seen and identified in the preoperative area. Risks, benefits, complications including but not limited to infections ,bleeding ,allergic reaction to the medications ,nerve damage and not complete pain releife , and alternatives were discussed with the patient. The patient agreed to proceed with the procedure and signed the consent. IV was started, and vital signs were stable. Patient was taken to the OR and time out was completed. The patient was placed in the prone position on procedure table and a pillow was placed under the abdomen to reduce lumbar lordosis. The lumbosacral area was prepped and draped in the usual sterile fashion.ere closely monitored during the procedure. Conscious sedation was used during the procedure to decrease patients anxiety. Vital signs was monitered during the entire procedure. Using anterior-posterior fluoroscopy, the L4-5 interlaminar space was identified and the skin over this site was marked and then infiltrated with 1% lidocaine subcutaneously. Subsequently, a 20-gauge Tuohy epidural needle was inserted and advanced toward the epidural space using the ``Loss of resistance technique and guided by AP and lateral fluoroscopy. The correct needle position in the epid ural space was verified with the injection of 2 mL of the water soluble contrast dye Isovue 200 contrast and observing an excellent epidurogram with the epidural spread of the dye, after negative aspiration for blood and CSF and in the absence of paresthesias. Again after negative aspiration, a 6 ml mixture containing 40 mg of Depo-medrol ( Preservetive Free ), and 2 ml of preservative free Normal Saline, and 2 ml of preservative free lidocaine 1% solution was injected and a washout of epidurogram was seen. Needle was withdrawn intact, skin was cleansed, and bandages were applied. COMPLICATIONS: None DISPOSITION / PLANS: The patient was placed in a supine position and transferred to the recovery area in a stable condition for observation. There was no evidence of lower extremity motor or sensory deficit after the procedure. Patient was discharged from the recovery room after meeting discharge criteria. Home discharge instructions were given to the patient by the staff. The patient was reexamined prior to discharge. The patient will schedule a follow up in the clinic in 2-4 weeks.
--- NOTE | 2022-09-27 17:06 | FL ---
EXAMINATION TYPE: FL guided pain mgmt statistic DATE OF EXAM: 09/27/2022 FLUOROSCOPY Fluoroscopy time of 1 seconds was used during lumbar epidural injection. One image document/s the pro cedure.
--- NOTE | 2022-09-27 23:41 | P.DS ---
Providers Date of admission: 09/24/22 19:40 Attending physician: Víctor Adkins MD Consults: 09/24/22 19:40 Consult Physician Routine Consulting Provider: Latisha Gonzales Consult Reason/Comments: pain Do you want consulting provider notified?: Yes Consult Physician Routine Consulting Provider: Timoteo Marks Consult Reason/Comments: sciatica Do you want consulting provider notified?: Yes Primary care physician: Buddy Nguyen Hospital Course: Final Diagnosis Acute left lower back pain with radiation is most likely a lumbar radiculopathy Mild acute dehydration, adequately rehydrated History of heart failure follows at [facility] for cardiology Status post permanent pacemaker in 2013 History of right hip replacement Discharge Disposition Patient is discharged home in stable condition, overall guarded prognosis. Patient was recommended for discharge to subacute rehab however she had refused and will be discharged home physical therapy. She underwent Lumbar epidural steroid infusion today with Dr. Gonzales who will see the patient in follow up in 2 weeks outpatient. Patient has also been evaluated by Dr. Marks who will follow up with the patient in the office in about 4 weeks. She is started on mobic daily and also given a script for tramadol 25 mg QID for the next 3 days for break through pain. Repeat BMP in 2 to 3 days and patient is also instructed to follow up with her primary care provider. Hospital Course This is an 82 year old female follows with Dr Nguyen medical history of heart failure, permanent pacemaker. Patient presents to the emergency room via EMS for lower back pain onset about 2 weeks ago. She reports moving and unpacking recently and about 2 weeks ago developed acute onset of sudden left lower back pain which is radiating through her buttock where she is feeling the most pain. Pain is reported as 9/10 at times. She had an appointment with pain management scheduled but was concerned that pain was not going away so she came in to the ER. Dr. Marks with orthopedics was consulted as well as Dr. Manzano with pain management services. Patient reports pain in the sudden posterior buttock region does radiate down to the her left ankle describes as burning. She denies urinary retention and incontinence also denies bowel incontinence. There is no weakness or loss of sensation. On admission hematology panel is unremarkable, white count 10.2, on stable 13.7. Patient has some mild dehydration with a BUN of 29, creatinine 0.99, glucose of 111, all other electrolytes are within normal limits. Liver enzymes are normal. Urinalysis is negative for infection there is small leukocyte esterase. Patient is admitted for back pain and weakness, PT OT were also consulted. Orthopedics recommending conservative management for now if that fails she will be considered for surgical intervention. Dr. Gonzales performed a lumbar epidural steroid infusion. She will follow up in 2 weeks in the office. She did have a lumbar spine x-ray completed on September 18 showing no acute fracture or dislocation there is a grade 1 anterior listhesis L4 on L5 with levoscoliotic curvature there is mild lumbar degenerative disc disease. Patient had lumbar spine CT completed today showing grade 1 anterolisthesis L4 and L5 with central stenosis at this level. 09/27/2022 Patient is monitored today post lumbar infusion. She reports pain is improved and would like to be discharged home. She has refused subacute rehab. Home physical therapy with [facility] has been set up. She denies shortness of breath, denies chest pain, no nausea, vomiting or diarrhea noted. She is alert x3 no focal neurological deficits. Lungs are clear, S1 S2 auscultated, abdomen is soft and nontender. +2 peripheral pulses and equal 5/5 strength bilaterally. She is using a walker to ambulate. Most recent vitals showing a temp of 98.6, heart rate 69, blood pressure 133/67, 96% room air. Patient will be discharged today. Please see medication reconciliation for a list of current medication. Thank you for allowing us to participate in the care of this patient. The impression and plan of care has been dictated by Cyn Echevarria, Nurse Practitioner as directed. Dr. Benoit MD I have performed a history and physical examination and medical decision making of this patient, discussed the same with the dictator, and agree with the dictators assessment and plan as written, documented as a scribe. Based on total visit time, I have performed more than 50% of this visit. Patient Condition at Discharge: Stable Plan - Discharge Summary Discharge Rx Participant: Yes New Discharge Prescriptions: New traMADol HCL 25 mg PO QID PRN 3 Days #6 tablet PRN Reason: Pain Famotidine [Pepcid] 20 mg PO HS #30 tab Acetaminophen Tab [Tylenol] 650 mg PO Q6HR PRN tab PRN Reason: Fever And/ Or Pain Meloxicam [Mobic] 7.5 mg PO DAILY 21 Days #21 tab Continue Metoprolol Succinate (ER) [Toprol XL] 50 mg PO DAILY Furosemide [Lasix] 20 mg PO DAILY Spironolactone [Aldactone] 25 mg PO DAILY Levothyroxine Sodium [Synthroid] 75 mcg PO DAILY Meclizine [Antivert] 25 mg PO TID PRN #15 tab PRN Reason: Vertigo Discharge Medication List Furosemide [Lasix] 20 mg PO DAILY 07/23/22 [History] Levothyroxine Sodium [Synthroid] 75 mcg PO DAILY 07/23/22 [History] Meclizine [Antivert] 25 mg PO TID PRN #15 tab 07/23/22 [Rx] Metoprolol Succinate (ER) [Toprol XL] 50 mg PO DAILY 07/23/22 [History] Spironolactone [Aldactone] 25 mg PO DAILY 07/23/22 [History] Acetaminophen Tab [Tylenol] 650 mg PO Q6HR PRN tab 09/27/22 [Rx] Famotidine [Pepcid] 20 mg PO HS #30 tab 09/27/22 [Rx] Meloxicam [Mobic] 7.5 mg PO DAILY 21 Days #21 tab 09/27/22 [Rx] traMADol HCL 25 mg PO QID PRN 3 Days #6 tablet 09/27/22 [Rx] Follow up Appointment(s)/Referral(s): Timoteo Marks DO [Doctor of Osteopathic Medicine] - 10/26/22 2:45 pm Buddy Nguyen MD [Primary Care Provider] - 10/04/22 3:40 pm Latisha Gonzales MD [STAFF PHYSICIAN] - 2 Weeks (Left a message on office machine please call them back if you do not here from them today.) [facility] Visiting Nurse, [NON-STAFF] - Ambulatory/Diagnostic Orders: Basic Metabolic Panel [LAB.AMB] Location: None Selected Activity/Diet/Wound Care/Special Instructions: Mobic 7.5 mg daily has been added as a new medication for pain relief Tramadol 25 mg po daily (1/2 tablet) can be taken as needed every 6 hours or 4 times per day for break through pain Please follow up with your primary care provider Dr. Wendy in the office in 1 to 2 days Follow up with Dr. Gonzales in the outpatient pain center in 2 to 4 weeks. Follow up with Dr. Marks, orthopedics speciality in the office in 4 weeks. Recommend to repeat labs in 2 to 3 days outpatient for hospital follow up [facility] has been set up for discharge with home physical therapy services Discharge/Stand Alone Forms: [facility] Pain/[facility] Instructions Discharge Disposition: HOME WITH HOME HEALTH SERVICES
== END 2022-09-27 18:21 | disposition home health service (06) | DRG 552 ==
LOC: EC 18:01 → 5NMEDONC 19:40
PROVIDERS: ADMIT Internal Medicine; ATTEND Internal Medicine
PROC: B01B1ZZ Fluoroscopy of Spinal Cord using Low Osmolar Contrast (ICD-10-PCS; principal; 2022-09-27 15:00)
PROC: 3E0R3BZ Introduction of Anesthetic Agent into Spinal Canal, Percutaneous Approach (ICD-10-PCS; principal; 2022-09-27 15:00)
PROC: 3E0R33Z Introduction of Anti-inflammatory into Spinal Canal, Percutaneous Approach (ICD-10-PCS; principal; 2022-09-27 15:00)
DX: M51.16 Intervertebral disc disorders with radiculopathy, lumbar region (principal); I50.9 Heart failure, unspecified; E86.0 Dehydration; J44.9 Chronic obstructive pulmonary disease, unspecified; Z28.310 Unvaccinated for COVID-19; M43.16 Spondylolisthesis, lumbar region; M48.061 Spinal stenosis, lumbar region without neurogenic claudication; G89.29 Other chronic pain; M47.26 Other spondylosis with radiculopathy, lumbar region; R00.1 Bradycardia, unspecified; Z79.890 Hormone replacement therapy; Z79.899 Other long term (current) drug therapy; Z95.0 Presence of cardiac pacemaker; Z96.641 Presence of right artificial hip joint; Z88.5 Allergy status to narcotic agent; Z88.8 Allergy status to other drugs, medicaments and biological substances
CPT/HCPCS: 36415; 62323; 72131; 80053; 81001; 82550; 85025; 96361; 96374; 96375; 99285

== ENCOUNTER → 2022-10-11 | Outpatient (CLI) | payer MEDICARE ==
[2022-10-11 13:53] VITALS: BP 121/83; PULSE 74; RESP 18; TEMP 98.3
--- NOTE | 2022-10-11 14:32 | P.PAINPG ---
PQRS Measure Charge Sheet Comment: A 82 yr old female with a history of severe and chronic low back pain secondary to lumbar DDD and spondylosis with facet arthropathy without myelopathy presents today for evaluation s/p ESE L4-L5. Pt states she experienced 50 % pain relief x 2 wks s/p procedure. Pain level is currently at 10/10 in intensity, constant, localized in L glute, stabbing in character w shooting towards the L ankle. Pain is provoked by standing/ walking for periods of 10 min. Pain is alleviated with medications (Lyrica), home exercises too painful, heat, use of a walker for ambulation and rest. Interventional pain procedures completed include ESE L4-L5 Patient is currently on Lyrica Patient denies any side effects of the medication(s), denies excessive drowsiness or sleepiness, denies suicidal ideation and reports that the current pain medication is helping to control the pain and improve activities of daily living. Patient denies any motor or sensory deficits. Patient denies any fever or night sweats, denies any change in the bowel movements or urination. Physical Examination: -Constitutional: Cooperative. Not in acute distress . - Neurologic: Cranial nerve II to XII intact. No focal neurological deficits. - Psychatric: Alert & oriented x 3. Matching mood & appropriate affect. Judgment and insight intact. - Musculoskeletal: Cervical spine: Muscle bulk/ tone/ strength in the bilateral upper extremities normal Vertebral body tenderness to palpation over Spurling test positive Distraction test positive Facet loading test positive Thoracic spine Muscle bulk / tone/ strength in the bilateral paraspinal muscles normal Vertebral body tender to palpation over Facet loading test positive Lumbar spine: Motor bulk/ tone/ strength lower extremities , thigh and legs : 5/5 Deep tendon reflexes : Normal Knee Jerk. Normal Ankle Jerk . Vertebral body tenderness to palpation over Lumbar Facet Loading Test positive Straight Leg Raise: positive at 30 degrees right side/ left side Gaenslen's Test positive Sacral spine : Severe tenderness over the Sacroiliac joint: right side / left side Range of motion: Flexion of the lumbar spine <60 degrees Range of motion: Extension of the lumbar spine <20 degrees Gaenslen's Test positive L Keenan test: positive right side / left side Thigh Thrust Test L Sacral Thrust Test Assessment and plan: Chronic low back pain secondary to lumbar degenerative disc disease, spondylosis with facet arthropathy without myelopathy Recommendation of L SI injection. May need a series , up to 4 within a 12 mo period, for optimal pain relief. Risks, benefits of procedure discussed and pt verbalized understanding. Admits to anticoagulant use or medical history of diabetes. Protocol for discontinuation/ continuation of medications nga procedure discussed. All patient questions answered I have spent less than 30 minutes on patient care today. Dr Gonzales was available by phone for the evaluation of this patient. The time was used to review the medical records including relevant urine studies and Prescription history (MAPs), review of the available imaging, evaluation and examination of the patient, coordination of care with the medical staff and if applicable referring physicians, as well as creation of the medical record Home Medications: Ambulatory Orders Furosemide [Lasix] 20 mg PO DAILY 07/23/22 Levothyroxine Sodium [Synthroid] 75 mcg PO DAILY 07/23/22 Meclizine [Antivert] 25 mg PO TID PRN #15 tab 07/23/22 Metoprolol Succinate (ER) [Toprol XL] 50 mg PO DAILY 07/23/22 Spironolactone [Aldactone] 25 mg PO DAILY 07/23/22 Acetaminophen Tab [Tylenol] 650 mg PO Q6HR PRN tab 09/27/22 Famotidine [Pepcid] 20 mg PO HS #30 tab 09/27/22 Meloxicam [Mobic] 7.5 mg PO DAILY 21 Days #21 tab 09/27/22 traMADol HCL 25 mg PO QID PRN 3 Days #6 tablet 09/27/22 Controlled Substance Measures - Controlled Substance Measures Is patient prescribed a controlled substance at discharge?: No
== END ==
LOC: PNWHC3 13:25
PROVIDERS: ATTEND Specialist
DX: M54.50 Low back pain, unspecified (principal)
CPT/HCPCS: 99211

== ENCOUNTER → 2022-11-27 | Outpatient (CLI) | payer MEDICARE ==
[2022-11-27 18:25] LABS: Basophils % (A) 1.1 %; Eosinophils # (A) 0.19 X 10*3/uL (0.04-0.35); Eosinophils % (A) 2.1 %; HCT 38.1 % (37.2-46.3); HGB 12.5 g/dL (12.0-15.0); Immature Grans, Automated 0.3 %; Lymphocytes # (A) 2.28 X 10*3/uL (0.90-5.00); Lymphocytes % (A) 24.7 %; MCH 31.6 pg (27.0-32.0); MCHC 32.8 g/dL (32.0-37.0); MCV 96.2 fL (80.0-97.0); Mean Platelet Volume 10.9 fL (9.5-12.2); Monocytes # (A) 0.59 X 10*3/uL (0.20-1.00); Monocytes % (A) 6.4 %; NRBC Per 100 WBC 0 /100 WBCS (0.0-0.0); Neutrophils # (A) 6.05 X 10*3/uL (1.80-7.70); Neutrophils % (A) 65.4 %; Platelet Count 251 X 10*3/uL (140-440); RBC 3.96 X 10*6/uL (4.10-5.20); RDW 13.6 % (11.5-14.5); WBC 9.24 X 10*3/uL (4.50-10.00)
[2022-11-27 19:48] LABS: Appearance,Urine Clear (Clear); Bilirubin,Urine Negative (Negative); Blood,Urine Negative (Negative); Color,Urine Dark Yellow (Yellow); Ketones,Urine Trace mg/dL (Negative); Nitrite,Urine Negative (Negative); PH, Urine 5.5 (5.0-8.0); Specific Gravity,Urine 1.022 (1.001-1.030); Urobilinogen,Urine 0.2 (0.2,1.0)
[2022-11-27 19:58] LABS: Bacteria,Urine None Seen /HPF (None Seen)
[2022-11-27 20:27] LABS: % Iron Saturation 43.59 (12.00-45.00); ALT 11 U/L (8-44); AST 14 U/L (13-35); African American GFR (CKD) 56.2 (60.0-200.0); Albumin 4.4 g/dL (3.8-4.9); Albumin/Globulin Ratio 2.16 (1.60-3.17); Alkaline Phosphatase 74 U/L (41-126); BUN/Creat Ratio 26.32 Ratio (12.00-20.00); Blood Urea Nitrogen 27.9 mg/dL (9.0-27.0); Calcium 9.4 mg/dL (8.7-10.3); Carbon Dioxide 22.9 mmol/L (20.0-27.5); Chloride 105 mmol/L (96-109); Glucose 97 mg/dL (70-110); Iron 130 ug/dL (50-170); Magnesium 2.2 mg/dL (1.5-2.4); Non-African American GFR(CKD) 48.5 (60.0-200.0); Potassium 4.2 mmol/L (3.5-5.5); Sodium 141 mmol/L (135-145); Total Iron Binding Capacity 298 ug/dL (228-460); Total Protein 6.4 g/dL (6.2-8.2)
[2022-11-27 20:44] LABS: Chol/HDL Ratio 6.49 Ratio; LDL Cholesterol,Calculated 218.1 mg/dL (0.0-131.0)
== END | disposition home or self-care (01) ==
LOC: LABWHC1 14:05
PROVIDERS: ATTEND Family Medicine
DX: E21.3 Hyperparathyroidism, unspecified (principal); D63.1 Anemia in chronic kidney disease; N39.0 Urinary tract infection, site not specified; E55.9 Vitamin D deficiency, unspecified; M10.9 Gout, unspecified; N18.32 Chronic kidney disease, stage 3b
CPT/HCPCS: 36415; 80053; 80061; 81001; 82043; 82306; 82570; 83540; 83550; 83735; 83970; 84100; 84550; 85025

== ENCOUNTER → 2023-07-04 | Outpatient (CLI) | payer MEDICARE ==
[2023-07-04 19:04] LABS: Urine Creatinine 35.2 mg/dL (28.0-217.0)
[2023-07-04 19:34] LABS: Appearance,Urine Cloudy (Clear); Bilirubin,Urine Negative (Negative); Blood,Urine Small (Negative); Color,Urine Yellow (Yellow); Ketones,Urine Negative (Negative); Nitrite,Urine Negative (Negative); Specific Gravity,Urine 1.006 (1.001-1.030); Urobilinogen,Urine 0.2 E.U./DL
[2023-07-04 21:15] LABS: HCT 37.8 % (37.2-46.3); MCH 30.5 pg (27.0-32.0); MCHC 31.7 d/dL (32.0-37.0); MCV 95.9 FL (80.0-97.0); Mean Platelet Volume 11.3 FL (9.5-12.2); NRBC Per 100 WBC 0 X 10*3/uL (0.00-0.01); Platelet Count 244 X 10*3/uL (140-440); RBC 3.94 X 10*6/uL (4.10-5.20); RDW 12.7 % (11.5-14.5); WBC 8.84 X 10*3/uL (4.50-10.00)
[2023-07-04 22:20] LABS: % Iron Saturation 15.69 (12.00-45.00); ALT 15 U/L (8-44); AST 22 U/L (13-35); Albumin 4.7 d/dL (3.8-4.9); Albumin/Globulin Ratio 2.24 Ratio (1.60-3.17); Alkaline Phosphatase 87 U/L (41-126); Blood Urea Nitrogen 21.9 mg/dL (9.0-27.0); Calcium 9.9 mg/dL (8.7-10.3); Chloride 101 mmol/L (96-109); Ferritin 54.5 ng/mL (10.0-291.0); Globulin 2.1 d/dL (1.6-3.3); Glucose 95 mg/dL (70-110); Iron 51 UG/DL (50-170); Magnesium 2.3 mg/dL (1.5-2.4); Phosphorus 4.3 mg/dL (2.4-5.1); Potassium 4.5 mmol/L (3.5-5.5); Sodium 137 mmol/L (135-145); Total Bilirubin 0.3 mg/dL (0.3-1.2); Total Iron Binding Capacity 325 UG/DL (228-460); Total Protein 6.8 d/dL (6.2-8.2)
== END | disposition home or self-care (01) ==
LOC: LABWHC1 13:23
PROVIDERS: ATTEND Internal Medicine
DX: N25.81 Secondary hyperparathyroidism of renal origin (principal); N18.32 Chronic kidney disease, stage 3b; D63.1 Anemia in chronic kidney disease; N39.0 Urinary tract infection, site not specified; E55.9 Vitamin D deficiency, unspecified; M10.9 Gout, unspecified
CPT/HCPCS: 36415; 80053; 81001; 82043; 82306; 82570; 82728; 83540; 83550; 83735; 83970; 84100; 85027

== ENCOUNTER → 2023-09-20 | Outpatient (CLI) | payer MEDICARE ==
[2023-09-21 01:17] LABS: ALT 12 U/L (8-44); AST 18 U/L (13-35); Albumin 4.4 d/dL (3.8-4.9); Alkaline Phosphatase 94 U/L (41-126); Blood Urea Nitrogen 19.5 mg/dL (9.0-27.0); Calcium 9.7 mg/dL (8.7-10.3); Carbon Dioxide 16.9 mmol/L (21.6-31.8); Chloride 104 mmol/L (96-109); Globulin 2.2 d/dL (1.6-3.3); Glucose 96 mg/dL (70-110); LDL Cholesterol,Calculated 199.2 mg/dL (0.0-131.0); Potassium 4.4 mmol/L (3.5-5.5); Sodium 139 mmol/L (135-145); Total Bilirubin <0.2 mg/dL (0.3-1.2); Total Protein 6.6 d/dL (6.2-8.2)
[2023-09-21 01:29] LABS: Basophils % (A) 1.2 %; Eosinophils # (A) 0.26 X 10*3/uL (0.04-0.35); HCT 39.9 % (37.2-46.3); HGB 12.5 d/dL (12.0-15.0); Lymphocytes % (A) 32.6 %; MCH 29.6 pg (27.0-32.0); MCHC 31.3 d/dL (32.0-37.0); MCV 94.5 FL (80.0-97.0); Mean Platelet Volume 11.5 FL (9.5-12.2); Monocytes # (A) 0.61 X 10*3/uL (0.20-1.00); Monocytes % (A) 7.1 %; NRBC Per 100 WBC 0 X 10*3/uL (0.00-0.01); Neutrophils % (A) 55.9 %; Platelet Count 239 X 10*3/uL (140-440); RBC 4.22 X 10*6/uL (4.10-5.20); RDW 13.1 % (11.5-14.5); WBC 8.59 X 10*3/uL (4.50-10.00)
== END | disposition home or self-care (01) ==
LOC: LABWHC1 12:16
PROVIDERS: ATTEND Family Medicine
DX: Z00.01 Encounter for general adult medical examination with abnormal findings (principal); I50.9 Heart failure, unspecified; E78.5 Hyperlipidemia, unspecified
CPT/HCPCS: 36415; 80053; 80061; 82306; 84439; 84443; 85025

== ENCOUNTER 2024-06-15 09:16 | Day surgery (SDC) | payer MEDICARE ==
[~2024-06-15 09:16] MED LIST: SODIUM CHLORIDE 0.9% 1,000 ML IV SCH
[2024-06-15 09:50] VITALS: RESP 18; TEMP 97.9
[2024-06-15] MEDS: SODIUM CHLORIDE 0.9% 1,000 ML IV SCH (09:51)
[2024-06-15] MEDS: IV FLUID CONTINUATION 1,000 ML IV ONE (09:51)
[2024-06-15 09:56] LABS: Basophils # (A) 0.1 k/uL (0-0.2); Basophils % (A) 1 %; Eosinophils # (A) 0.2 k/uL (0-0.7); Eosinophils % (A) 3 %; HCT 39.1 % (34.0-46.0); HGB 12.7 gm/dL (11.4-16.0); Lymphocytes # (A) 2.3 k/uL (1.0-4.8); Lymphocytes % (A) 31 %; MCH 30.8 pg (25.0-35.0); MCHC 32.5 g/dL (31.0-37.0); MCV 94.8 fL (80.0-100.0); Mean Platelet Volume 7.8; Monocytes # (A) 0.5 k/uL (0-1.0); Monocytes % (A) 7 %; Neutrophils # (A) 4.1 k/uL (1.3-7.7); Neutrophils % (A) 55 %; Platelet Count 255 k/uL (150-450); RBC 4.12 m/uL (3.80-5.40); RDW 12.5 % (11.5-15.5); WBC 7.5 k/uL (3.8-10.6)
[2024-06-15 10:09] LABS: African American GFR (CKD) 61 (>60 ml/min/1.73 sqM); Anion Gap 6 mmol/L; Blood Urea Nitrogen 20 mg/dL (7-17); Calcium 9.3 mg/dL (8.4-10.2); Carbon Dioxide 28 mmol/L (22-30); Chloride 106 mmol/L (98-107); Glucose 93 mg/dL (74-99); Non-African American GFR(CKD) 53 (>60 ml/min/1.73 sqM); Potassium 4.2 mmol/L (3.5-5.1); Sodium 140 mmol/L (137-145)
[2024-06-15] MEDS: MIDAZOLAM 2 MG/2 ML VIAL IVP ONE (11:13)
[2024-06-15] MEDS: LIDOCAINE 1% INJ 10MG/ML (20 ML MDV) SQ ONE ×2 (11:18→11:20)
[2024-06-15] MEDS: ceFAZolin 1 GM in SODIUM CHLORIDE 0.9% IRRIG BTL 250 ML IRRIGATION PRN (11:21)
--- NOTE | 2024-06-15 12:15 | P.PCN ---
Date of Procedure: 06/15/24 Description of Procedure: Proposed Procedures: 1. #1 explantation of old pacemaker generator #2 insertion of a new dual-chamber [employer] pacemaker generator #3 fluoroscopy as needed Actual Procedures: 1. #1 explantation of old pacemaker generator #2 insertion of a new dual-chamber [employer] pacemaker generator #3 fluoroscopy as needed ] Preprocedure diagnosis: Sick Sinus Syndrome Postoperative Diagnosis: Sick sinus syndrome Surgeons: 1. Dr. Yi Anesthesia: sedation and local anesthesia, moderate conscious sedation time was 28 minutes. Patient received Versed intravenously. Vital signs oxygen saturation and hemodynamics were monitored closely Estimated Blood Loss: minimal Procedure details: This patient has sick sinus syndrome hypertension and hypothyroidism and moderate aortic stenosis. She sees Dr. Jackson who follows her closely in the office and she has a dual-chamber pacemaker placed in 2013 which has reached LINDA and was therefore advised elective dual pacemaker generator explantation and reimplantation of a new generator. She was brought in for the procedure electively. I discussed with her the rationale risks benefits options. She understood all details and wished to proceed with the procedure. The existing [employer] pacemaker was checked. The thresholds and sensitivities were very good of the leads. She was not pacemaker dependent. She was mostly atrial sensed and ventricular paced but underlying atrial rhythm was also noted with bradycardia. Under strict aseptic precautions and local anesthesia with adequate sedation, over the existing pulse generator is a linear incision was made. Using cautery and blunt dissection the existing [employer] pulse generator was explanted and delivered from the capsule. Both the pacemaker leads were checked. The thresholds impedances and sensitivities were good. A new pulse generator by [employer] was used and the leads were attached to the new generator. The pacemaker settings were again checked checked and the parameters were excellent. The wound was closed in 2 layers. As the incision was made patient received intravenous antibiotic prophylaxis. The wound was also irrigated with antibiotic solution prior to closure. Patient tolerated procedu re well. There were no complications. Good hemostasis was secured. The wound was closed in 2 layers using 2.0 and 3.0 Vicryl. She tolerated procedure well. Pacemaker information: The explanted device graphic art technician was [employer] model was 3063 serial number was [id number] The same [employer] leads were used. The new device graphic art technician is [employer] model W1 DR 01 serial number RN be [id number]. The atrial threshold was 0.5 mV at point 4 ms, P waves were 1.3 mV, impedance was 399 ohms. The ventricular threshold was 0.5 V at point 4 ms, R waves were 7.4, impedance was 322 ohms. The pacemaker was set at a backup rate of 60 and upper rate of 120 in a DDDR mode. The AV delay paced was 200 ms sensed delay was 180 ms . Details were discussed with the patient as well as her daughter. I expect she will be discharged in the next couple of hours and follow-up with Dr. Jackson in the office for a device check and site check in about 1 week.
[2024-06-15 13:22] VITALS: PULSE 60
[2024-06-15 13:57] VITALS: BP 142/56
== END 2024-06-15 14:10 | disposition home or self-care (01) ==
LOC: CATHEP 09:16
PROVIDERS: ATTEND Internal Medicine Interventional Cardiology
DX: T82.111A Breakdown (mechanical) of cardiac pulse generator (battery), initial encounter (principal); I49.5 Sick sinus syndrome; I35.0 Nonrheumatic aortic (valve) stenosis; I10 Essential (primary) hypertension; E03.9 Hypothyroidism, unspecified; Z88.5 Allergy status to narcotic agent; Z88.1 Allergy status to other antibiotic agents; Z88.8 Allergy status to other drugs, medicaments and biological substances; Z79.899 Other long term (current) drug therapy; Y83.8 Other surgical procedures as the cause of abnormal reaction of the patient, or of later complication, without mention of misadventure at the time of the procedure
CPT/HCPCS: 80048; 85025; J2250; J0690; J2001; 33228

== ENCOUNTER → 2024-07-23 | Outpatient (CLI) | payer MEDICARE ==
[2024-07-24 01:52] LABS: T4, Free (Free Thyroxine) 1.69 ng/dL (0.80-1.80)
== END | disposition home or self-care (01) ==
LOC: LABWHC1 15:50
PROVIDERS: ATTEND Family Medicine
DX: E03.9 Hypothyroidism, unspecified (principal)
CPT/HCPCS: 36415; 84439; 84443; 84481